=== PATIENT | male | born 1995 | race Asian ===

== ENCOUNTER 2017-03-30 14:43 | Emergency (ER) | payer OTHER ==
[~2017-03-30] VITALS: Ht 172.7 cm; Wt 102.1 kg
== END 2017-03-30 16:16 | disposition home or self-care (01) ==
LOC: ED 14:43
DX: J45.901 Unspecified asthma with (acute) exacerbation (principal); J06.9 Acute upper respiratory infection, unspecified
CPT/HCPCS: 99281

== ENCOUNTER 2018-09-26 09:36 | Emergency (ER) | payer OTHER ==
[~2018-09-26] VITALS: Ht 175.3 cm; Wt 104.3 kg
[2018-09-26 10:25] VITALS: BP 144/78; TEMP 100.3
== END 2018-09-26 10:25 | disposition home or self-care (01) ==
LOC: ED 09:36
DX: J06.9 Acute upper respiratory infection, unspecified (principal); R19.7 Diarrhea, unspecified; R11.2 Nausea with vomiting, unspecified
CPT/HCPCS: 99281

== ENCOUNTER 2020-03-16 11:45 | Emergency (ER) | payer OTHER ==
[~2020-03-16] VITALS: Ht 170.2 cm; Wt 102.1 kg
[2020-03-16 12:07] VITALS: TEMP 98.9
[2020-03-16 14:49] VITALS: BP 128/72
== END 2020-03-16 14:49 | disposition home or self-care (01) ==
LOC: ED 11:45
DX: J02.0 Streptococcal pharyngitis (principal); F17.210 Nicotine dependence, cigarettes, uncomplicated; Z11.59 Encounter for screening for other viral diseases
CPT/HCPCS: 87635; 87651; 99283; U00003

== ENCOUNTER 2020-05-06 13:25 | Emergency (ER) | payer OTHER ==
[~2020-05-06] VITALS: Ht 175.3 cm; Wt 102.1 kg
[2020-05-06 13:26] VITALS: TEMP 97.5
[2020-05-06 14:13] LABS: POTASSIUM 3.6 mmol/L (3.6-5.2); SODIUM 139 mmol/L (136-145)
[2020-05-06 14:20] LABS: PLATELET COUNT 156 K/uL (142-355)
[2020-05-06 14:22] LABS: PARTIAL THROMBOPLASTIN TIME 24.5 SECONDS (24.5-33.6)
[2020-05-06 15:10] VITALS: BP 153/94
== END 2020-05-06 15:10 | disposition home or self-care (01) ==
LOC: ED 13:25
PROVIDERS: Hospitalist
DX: R07.89 Other chest pain (principal); K21.9 Gastro-esophageal reflux disease without esophagitis
CPT/HCPCS: 36415; 80053; 82550; 82553; 83880; 84484; 85027; 85610; 85730; 93005; 96374; 96375; 99284; J1885; J2405

== ENCOUNTER 2021-02-18 11:28 | Emergency (ER) | payer OTHER ==
[~2021-02-18] VITALS: Ht 170.2 cm; Wt 102.1 kg
[2021-02-18 11:30] VITALS: TEMP 97.2
[2021-02-18 12:01] LABS: PLATELET COUNT 133 K/uL (142-355)
[2021-02-18 12:10] LABS: POTASSIUM 3.7 mmol/L (3.6-5.2); SODIUM 143 mmol/L (136-145)
[2021-02-18 12:47] VITALS: BP 146/86
== END 2021-02-18 12:49 | disposition home or self-care (01) ==
LOC: ED 11:28
PROVIDERS: Emergency Medicine
DX: R07.89 Other chest pain (principal); R11.2 Nausea with vomiting, unspecified
CPT/HCPCS: 80053; 82550; 84484; 85027; 85379; 93005; 99283

== ENCOUNTER 2022-01-14 17:14 | Emergency (ER) | payer OTHER ==
[~2022-01-14] VITALS: Ht 170.2 cm; Wt 102.1 kg
[2022-01-14] MEDS ORDERED: SULFACET SOD10 % OPTH (19:07)
[2022-01-14 19:40] VITALS: BP 131/74; TEMP 98.5
== END 2022-01-14 19:40 | disposition home or self-care (01) ==
LOC: ED 17:14
DX: H10.89 Other conjunctivitis (principal)
CPT/HCPCS: 99282

== ENCOUNTER 2022-05-14 14:06 | Emergency (ER) | payer OTHER ==
[~2022-05-14] VITALS: Ht 170.2 cm; Wt 102.1 kg
[~2022-05-14 14:06] MED LIST: SULFACET SOD10 % OPTH
[2022-05-14 14:10] VITALS: TEMP 100.6
[2022-05-14 15:59] LABS: PLATELET COUNT 97 K/uL (142-355)
[2022-05-14 16:06] LABS: POTASSIUM 3.5 mmol/L (3.6-5.2)
[2022-05-14 17:00] VITALS: BP 128/86
== END 2022-05-14 18:14 | disposition home or self-care (01) ==
LOC: ED 14:06
PROVIDERS: Emergency Medicine
DX: F19.10 Other psychoactive substance abuse, uncomplicated (principal); R51.9 Headache, unspecified
CPT/HCPCS: 80053; 80307; 81002; 84484; 85027; 93005; 96374; 96375; 99284; J2270; J2405

== ENCOUNTER 2022-08-24 12:04 | Emergency (ER) | payer OTHER ==
[~2022-08-24] VITALS: Ht 170.2 cm; Wt 102.1 kg
[2022-08-24 12:05] VITALS: TEMP 100
[2022-08-24 13:30] VITALS: BP 148/88
== END 2022-08-24 13:42 | disposition home or self-care (01) ==
LOC: ED 12:04
DX: S09.8XXA Other specified injuries of head, initial encounter (principal); S00.83XA Contusion of other part of head, initial encounter; S83.8X1A Sprain of other specified parts of right knee, initial encounter; S80.211A Abrasion, right knee, initial encounter; S00.81XA Abrasion of other part of head, initial encounter; V49.9XXA Car occupant (driver) (passenger) injured in unspecified traffic accident, initial encounter; Y92.89 Other specified places as the place of occurrence of the external cause
CPT/HCPCS: 90715; 96372; 99283; J1885

== ENCOUNTER 2022-09-25 17:37 | Emergency (ER) | payer OTHER ==
[~2022-09-25] VITALS: Ht 170.2 cm; Wt 102.1 kg
[2022-09-25 17:42] VITALS: TEMP 99
[2022-09-25 19:01] VITALS: BP 137/91
== END 2022-09-25 19:02 | disposition home or self-care (01) ==
LOC: ED 17:37
DX: R11.2 Nausea with vomiting, unspecified (principal); K52.89 Other specified noninfective gastroenteritis and colitis
CPT/HCPCS: 96372; 99282; J2405

== ENCOUNTER 2022-12-06 18:08 | Emergency (ER) | payer OTHER ==
[~2022-12-06] VITALS: Ht 170.2 cm; Wt 104.3 kg
[2022-12-06 18:20] VITALS: TEMP 98.1
[2022-12-06 19:52] VITALS: BP 136/72
== END 2022-12-06 19:54 | disposition home or self-care (01) ==
LOC: ED 18:08
DX: R51.9 Headache, unspecified (principal); Z87.828 Personal history of other (healed) physical injury and trauma
CPT/HCPCS: 96372; 99283; J1885

== ENCOUNTER 2023-05-02 21:14 | Emergency (ER) | payer OTHER ==
[~2023-05-02] VITALS: Ht 170.2 cm; Wt 106.6 kg
[2023-05-02 21:20] VITALS: BP 150/93; TEMP 99.6
[2023-05-02 21:54] LABS: PLATELET COUNT 125 K/uL (142-355)
[2023-05-02 22:06] LABS: PARTIAL THROMBOPLASTIN TIME 28.1 SECONDS (23.9-36.7)
[2023-05-02 22:24] LABS: POTASSIUM 3.6 mmol/L (3.6-5.2)
== END 2023-05-02 23:05 | disposition home or self-care (01) ==
LOC: ED 21:14
PROVIDERS: Family Medicine
DX: U07.1 COVID-19 (principal); F17.210 Nicotine dependence, cigarettes, uncomplicated
CPT/HCPCS: 80053; 81002; 82550; 84484; 85027; 85610; 85730; 87502; 87635; 93005; 96361; 96374; 96375; 99284; J2270; J2405; U0003